=== PATIENT | male | born 1960 | race Caucasian/White ===

== ENCOUNTER 2017-08-05 12:24 | Emergency (ER) | payer MEDICAID, OTHER ==
[~2017-08-05] VITALS: Ht 167.6 cm; Wt 85.9 kg
[2017-08-05] MEDS ORDERED: OMEP20 PO (12:28)
[2017-08-05] MEDS ORDERED: LISI-662 PO (12:28)
[2017-08-05] MEDS ORDERED: CefTRIAXone 1 GM/DEXTROSE 50 ML IV ONE (13:15)
[2017-08-05] MEDS ORDERED: CefTRIAXone SODIUM 1 GM/VIAL IM ONE (13:45)
[2017-08-05] MEDS ORDERED: LIDOCAINE HCL/PF 1% 2 ML VIAL IM ONE (13:45)
[2017-08-05 13:47] LABS: BASOPHILS # (AUTO) 0.01 K/uL (0.00-0.20); BASOPHILS % (AUTO) 0.1 % (0.0-2.0); EOSINOPHILS # (AUTO) 0.07 K/uL (0.00-0.70); EOSINOPHILS % (AUTO) 0.63 % (1.0-6.0); HEMOGLOBIN 14.5 g/dL (13.5-17.5); LYMPHOCYTES # (AUTO) 0.8 K/uL (1.0-4.8); LYMPHOCYTES % (AUTO) 6.5 % (22.0-44.0); MEAN CORPUSCULAR HGB CONC 34.4 G/dL (31.0-37.0); MEAN CORPUSCULAR VOLUME 99 fL (80-100); MONOCYTES % (AUTO) 17.3 % (2.0-9.0); NEUTROPHILS # (AUTO) 8.8 K/uL (1.8-7.7); NEUTROPHILS % (AUTO) 75.6 % (40.0-70.0); RED BLOOD CELL COUNT(AUTO) 4.26 MIL/uL (4.50-5.90); RED CELL DISTRIBUTION WIDTH 15.1 % (11.5-14.5); WHITE BLOOD COUNT (AUTO) 11.6 K/uL (4.5-11.0)
[2017-08-05 13:57] LABS: ANION GAP 10 mmol/L (8-16); CALCIUM, TOTAL 8.4 mg/dL (8.8-10.5); CARBON DIOXIDE 25 mmol/L (22-29); CHLORIDE 96 mmol/L (98-107); CREATININE 1.09 mg/dL (0.60-1.30); GLOMERULAR FILTR. RATE CALC > 60 mL/min (>60); POTASSIUM 3.5 mmol/L (3.5-5.1); SODIUM SERUM 131 mmol/L (136-145); UREA NITROGEN, BLOOD 22 mg/dL (7-18)
[2017-08-05 14:03] LABS: ALANINE AMINOTRANSFERASE 33 U/L (12-78); ALBUMIN 2.4 g/dL (3.4-5.0); ASPARTATE AMINOTRANSFERASE 68 U/L (15-37); BILIRUBIN,TOTAL 2.1 mg/dL (0.1-1.0); TOTAL PROTEIN, SERUM 7.7 g/dL (6.4-8.2)
[2017-08-05 14:06] LABS: PLATELET COUNT (AUTO) 66 K/uL (150-450)
[2017-08-05 14:21] VITALS: BP 140/88
[2017-08-07] MEDS ORDERED: ABX PO (10:31)
[2017-08-07] MEDS ORDERED: DOXY50 PO (10:35)
[2017-08-10] MEDS ORDERED: METF500T4 PO ×2 (12:28→14:06)
[2017-08-10] MEDS ORDERED: AMLO5TAB66 PO (12:28)
[2017-08-10] MEDS ORDERED: BACTDSB PO (13:10)
[2017-08-10] MEDS ORDERED: HYDR-309 PO (14:00)
[2017-08-10] MEDS ORDERED: AMLO-512 PO (14:06)
== END 2017-08-05 14:23 | disposition home or self-care (01) ==
LOC: EMS 12:25
DX: L03.115 Cellulitis of right lower limb (principal); I10 Essential (primary) hypertension
CPT/HCPCS: 36415; 80053; 85025; 93971; 96372; 99285; J0696; J3490

== ENCOUNTER 2019-05-13 17:43 | Emergency (ER) | payer MEDICARE, OTHER ==
[~2019-05-13] VITALS: Ht 170.2 cm; Wt 70.0 kg
[~2019-05-13 17:43] MED LIST: AMLO-512 PO; AMLO5TAB66 PO; BACTDSB PO; DOXY50 PO; HYDR-309 PO; LISI-662 PO; METF-444 PO; METF-960 PO; OMEP20 PO
[2019-05-13] MEDS ORDERED: ACET650S14 PR (18:40)
[2019-05-13] MEDS ORDERED: ONDA4AMP IV (18:40)
[2019-05-13] MEDS ORDERED: DIPH25TA20 PO (18:40)
[2019-05-13] MEDS ORDERED: METH125V14 IVP (18:40)
[2019-05-13] MEDS ORDERED: LOPE2CAP PO (18:40)
[2019-05-13] MEDS ORDERED: CLON0.1T PO (18:40)
[2019-05-13] MEDS ORDERED: EPOE10003 IV (18:40)
[2019-05-13] MEDS ORDERED: NITR0.4T SL (18:40)
[2019-05-13 18:58] LABS: BASOPHILS % (AUTO) 0.4 % (0.0-2.0); EOSINOPHILS % (AUTO) 0 % (1.0-6.0); HEMATOCRIT 26.8 % (41-53); HEMOGLOBIN 8.7 g/dL (13.5-17.5); LYMPHOCYTES # (AUTO) 0.2 K/uL (1.0-4.8); LYMPHOCYTES % (AUTO) 3.2 % (22.0-44.0); MEAN CORPUSCULAR HEMOGLOBIN 29.7 pg (26.0-34.0); MEAN CORPUSCULAR HGB CONC 32.6 G/dL (31.0-37.0); MEAN CORPUSCULAR VOLUME 91 fL (80-100); MONOCYTES # (AUTO) 0.8 K/uL (0.1-1.0); MONOCYTES % (AUTO) 13.2 % (2.0-9.0); NEUTROPHILS # (AUTO) 5.3 K/uL (1.8-7.7); NEUTROPHILS % (AUTO) 83.2 % (40.0-70.0); RED BLOOD CELL COUNT(AUTO) 2.94 MIL/uL (4.50-5.90); RED CELL DISTRIBUTION WIDTH 23.9 % (11.5-14.5)
[2019-05-13 19:10] LABS: CALCIUM, TOTAL 9.1 mg/dL (8.8-10.5); CREATININE 3.71 mg/dL (0.60-1.30); INR 1.2 (0.9-1.1); POTASSIUM 4.2 mmol/L (3.5-5.1); PROTHROMBIN TIME 12.4 SEC (9.4-11.6)
[2019-05-13 19:17] LABS: ALBUMIN 3.3 g/dL (3.4-5.0); BILIRUBIN,TOTAL 1.6 mg/dL (0.1-1.0); TOTAL PROTEIN, SERUM 7.1 g/dL (6.4-8.2)
[2019-05-13 19:55] LABS: PLATELET MORPHOLOGY COMMENT LARGE PLTS PRESENT
[2019-05-13 19:57] LABS: PLATELET COUNT (AUTO) 58 K/uL (150-450)
[2019-05-13 20:13] VITALS: BP 133/75
== END 2019-05-13 21:31 | disposition home or self-care (01) ==
LOC: EMS 17:44
DX: R42 Dizziness and giddiness (principal); E11.9 Type 2 diabetes mellitus without complications; I10 Essential (primary) hypertension; Z79.84 Long term (current) use of oral hypoglycemic drugs; Z79.899 Other long term (current) drug therapy
CPT/HCPCS: 36415; 71045; 80053; 82550; 83880; 84484; 85025; 85610; 85730; 93005; 99285; G0480